=== PATIENT | female | born 1960 | race Two or more races ===

== ENCOUNTER 2023-08-23 12:59 | Emergency (ER) | payer SELFPAY ==
[~2023-08-23] VITALS: Ht 157.5 cm; Wt 81.8 kg
[2023-08-23 13:18] VITALS: TEMP 98.2
[2023-08-23 13:26] LABS: COVID AG,FIA SOURCE NASAL SWAB
[2023-08-23 13:50] LABS: INFLUENZA TYPE A NEGATIVE FOR TYPE A (NEGATIVE); INFLUENZA TYPE B NEGATIVE FOR TYPE B (NEGATIVE); SARS-COV2 (COVID) ANTIGEN,FIA Negative (Negative)
[2023-08-23 14:26] LABS: BASOPHILS % (AUTO) 1.1 % (0.0-2.0); EOSINOPHILS % (AUTO) 3.4 % (1.0-6.0); HEMATOCRIT 50.9 % (36-46); HEMOGLOBIN 17.2 g/dL (12.0-16.0); LYMPHOCYTES # (AUTO) 2.4 K/uL (1.0-4.8); MEAN CORPUSCULAR HEMOGLOBIN 29.9 pg (26.0-34.0); MEAN CORPUSCULAR HGB CONC 33.8 G/dL (31.0-37.0); MEAN CORPUSCULAR VOLUME 89 fL (80-100); MONOCYTES # (AUTO) 1.1 K/uL (0.1-1.0); MONOCYTES % (AUTO) 10.5 % (2.0-9.0); NEUTROPHILS # (AUTO) 6.1 K/uL (1.8-7.7); PLATELET COUNT (AUTO) 325 K/uL (150-450); RED BLOOD CELL COUNT(AUTO) 5.75 MIL/uL (4.00-5.20); RED CELL DISTRIBUTION WIDTH 13.3 % (11.5-14.5); WHITE BLOOD COUNT (AUTO) 10.1 K/uL (4.5-11.0)
[2023-08-23 14:47] LABS: TROPONIN I-HIGH SENSITIVITY 46 ng/L (<51)
[2023-08-23 14:49] LABS: ALBUMIN 3.7 g/dL (3.4-5.0); BILIRUBIN,TOTAL 1.2 mg/dL (0.1-1.0); CALCIUM, TOTAL 10.4 mg/dL (8.8-10.5); CREATININE 1.38 mg/dL (0.60-1.30); TOTAL PROTEIN, SERUM 7.8 g/dL (6.4-8.2)
[2023-08-23 14:52] LABS: POTASSIUM 2.5 mmol/L (3.5-5.1)
[2023-08-23] MEDS: METOCLOPRAMIDE HCL 5 MG/ML 2 ML VIAL IVP ONE ×2 (15:19→15:22)
[2023-08-23] MEDS: SODIUM CHLORIDE 0.9% 1,000 ML IV ONE (15:19)
[2023-08-23 16:01] LABS: TROPONIN I-HIGH SENSITIVITY 52 ng/L (<51)
[2023-08-23 17:21] VITALS: BP 130/92; PULSE 102; RESP 26
[2023-08-23] MEDS: POTASSIUM CHL 10 MEQ/WATER 50 ML IV ONE (17:28)
[2023-08-23 19:09] LABS: APPEARANCE,URINE HAZY (CLEAR); COLOR,URINE YELLOW (YELLOW); GLUCOSE, URINE (UA) NEGATIVE (NEGATIVE); KETONES,URINE 40-60 mg/dL (NEGATIVE); LEUKOCYTE ESTERASE ,URINE LARGE (NEGATIVE); NITRATE,URINE NEGATIVE (NEGATIVE); OCCULT BLOOD,URINE NEGATIVE (NEGATIVE); PROTEIN,URINE 100-200,SEE CONFIRM mg/dL (NEGATIVE); SPECIFIC GRAVITIY, URINE 1.024 (1.003-1.030)
[2023-08-23 19:11] LABS: TROPONIN I-HIGH SENSITIVITY 42 ng/L (<51)
[2023-08-23 19:11] LABS: BILIRUBIN,URINE SMALL (NEGATIVE)
[2023-08-23 19:16] LABS: SULFOSALICYLIC ACID,URINE 3+ (Negative)
[2023-08-23 19:17] LABS: BACTERIA,URINE Many /HPF (None Seen); SQUAMOUS EPITHELIAL CELL,UR Few /LPF (None Seen); WBC,URINE 26-50 /HPF (0-5)
[2023-08-23] MEDS ORDERED: ONDA-104 PO (21:15)
[2023-08-23] MEDS ORDERED: CEPH-558 PO (21:24)
== END 2023-08-23 21:30 | disposition home or self-care (01) ==
LOC: EMS 13:13
DX: N39.0 Urinary tract infection, site not specified (principal); R10.32 Left lower quadrant pain; E86.0 Dehydration; Z90.49 Acquired absence of other specified parts of digestive tract; Z90.710 Acquired absence of both cervix and uterus; Z20.822 Contact with and (suspected) exposure to COVID-19
CPT/HCPCS: 99285; 74176; 96365; 96366; 96361; 96375; 87426; 80053; 81001; 83690; 84484; 85025; 87804; 87186; 93005; 36415; J2765; J3480; J7030; 81002; 87086